=== PATIENT | female | born 1965 | race American Indian/Alaskan Native ===

== ENCOUNTER 2017-03-02 22:13 | Emergency (ER) | payer SELFPAY ==
[2017-03-02 22:37] VITALS: BP 130/80
[2017-03-02 23:01] LABS: Basophils % (Auto) 0.8 % (0.0-1.8); Eosinophils % (Auto) 1.7 % (0.0-4.3); Hemoglobin 12.1 gm/dl (10.1-14.3); Mean Corpuscular HGB Conc 33 % (30-34); Mean Corpuscular Hemoglobin 30 pg (28-32); Mean Corpuscular Volume 92 fl (79-97); Platelet Count 224 K/mm3 (140-440); Red Blood Count 4.05 M/mm3 (3.65-5.03); Red Cell Distribution Width 14.5 % (13.2-15.2)
[2017-03-02 23:21] LABS: Alanine Aminotransferase 14 units/L (7-56); Albumin 4.2 g/dL (3.9-5); Albumin/Globulin Ratio 1.4 %; Alkaline Phosphatase 77 units/L (35-129); Anion Gap 18 mmol/L; Bilirubin,Total < 0.20 mg/dL (0.1-1.2); Blood Urea Nitrogen 14 mg/dL (7-17); Calcium 9.1 mg/dL (8.4-10.2); Carbon Dioxide 26 mmol/L (22-30); Chloride 103.1 mmol/L (98-107); Glucose 90 mg/dL (65-100); Sodium 143 mmol/L (137-145); Total Protein 7.3 g/dL (6.3-8.2)
--- NOTE | 2017-03-02 23:58 | Cat Scan Report ---
FINAL REPORT EXAM: CT HEAD/BRAIN WO CON HISTORY: HEADACHE TECHNIQUE: CT imaging acquired through the head without intravenous contrast. Transaxial reformations are provided. PRIORS: None. FINDINGS: The ventricles, cisterns and sulci are normal. No intraparenchymal or extra-axial mass, hemorrhage, or mass effect. Sanders and white-matter differentiation is within normal limits. Normal spherical shape of the globes. Paranasal sinuses and mastoid air cells are clear. No skull or facial fracture visualized. IMPRESSION: No acute intracranial abnormality.
--- NOTE | 2017-03-04 15:57 | ED Elopement Review ---
ED Pt Elopement review - Results review Lab results: Laboratory Tests 03/02/17 03/02/17 22:49 22:49 WBC 6.0 RBC 4.05 Hgb 12.1 Hct 37.0 MCV 92 MCH 30 MCHC 33 RDW 14.5 Plt Count 224 Lymph % (Auto) 45.2 H Carbon % (Auto) 5.0 Eos % (Auto) 1.7 Baso % (Auto) 0.8 Lymph # 2.7 Carbon # 0.3 Eos # 0.1 Baso # 0.0 Seg Neutrophils % 47.3 Seg Neutrophils # 2.9 Sodium 143 Potassium 4.0 Chloride 103.1 Carbon Dioxide 26 Anion Gap 18 BUN 14 Creatinine 0.8 Estimated GFR > 60 BUN/Creatinine Ratio 17.50 Glucose 90 Calcium 9.1 Total Bilirubin < 0.20 AST 21 ALT 14 Alkaline Phosphatase 77 Total Protein 7.3 Albumin 4.2 Albumin/Globulin Ratio 1.4 - Call Back decision Pt Call Back Decision: Call pt to return to ED [facility]
== END 2017-03-03 03:30 | disposition left against medical advice (07) ==
LOC: ED 22:13
DX: R51 Headache (principal); R42 Dizziness and giddiness; Z53.21 Procedure and treatment not carried out due to patient leaving prior to being seen by health care provider
CPT/HCPCS: 36415; 70450; 80053; 85025; 93005; 93010